=== PATIENT | female | born 1990 | race Caucasian/White ===

== ENCOUNTER 2016-12-11 17:16 | Outpatient (CLI) | payer MEDICAID, OTHER ==
[~2016-12-11] VITALS: Ht 168.9 cm; Wt 103.0 kg
[~2016-12-11 17:16] MED LIST: ACET50TA PO; PRENTAB29 PO
[2016-12-11 17:25] VITALS: BP 113/72
[2016-12-11] MEDS ORDERED: INSUNSD SC ×2 (17:44)
[2016-12-11] MEDS ORDERED: VITA400T13 PO (17:44)
[2016-12-11] MEDS ORDERED: MAGN250T2 PO (17:44)
[2016-12-11] MEDS ORDERED: HUMA100I3 SC ×2 (17:44)
[2016-12-11] MEDS ORDERED: ALBU17IN2 INH (17:44)
[2016-12-11] MEDS ORDERED: CLAR10CA3 PO (17:44)
[2016-12-11] MEDS ORDERED: IRON50TA PO (17:44)
== END 2016-12-11 19:16 ==
LOC: M LDO 17:16
PROVIDERS: ATTEND Obstetrics & Gynecology
DX: O26.893 Other specified pregnancy related conditions, third trimester (principal); R10.9 Unspecified abdominal pain; O09.213 Supervision of pregnancy with history of pre-term labor, third trimester; O24.419 Gestational diabetes mellitus in pregnancy, unspecified control; O99.513 Diseases of the respiratory system complicating pregnancy, third trimester; J44.9 Chronic obstructive pulmonary disease, unspecified; O99.343 Other mental disorders complicating pregnancy, third trimester; F43.10 Post-traumatic stress disorder, unspecified; F60.3 Borderline personality disorder; Z3A.33 33 weeks gestation of pregnancy

== ENCOUNTER 2018-01-17 21:10 | Outpatient (CLI) | payer OTHER | END 2018-01-17 22:25 | disposition home or self-care (01) | LOC: M LDO 21:10 | DX: O47.03 False labor before 37 completed weeks of gestation, third trimester (principal); Z3A.35 35 weeks gestation of pregnancy; Z79.4 Long term (current) use of insulin; Z79.899 Other long term (current) drug therapy; Z88.0 Allergy status to penicillin; Z88.8 Allergy status to other drugs, medicaments and biological substances | CPT/HCPCS: 76815 ==

== ENCOUNTER 2019-03-11 19:14 | Inpatient (IN) | payer OTHER ==
[~2019-03-11] VITALS: Ht 162.6 cm; Wt 102.1 kg
[~2019-03-11 19:14] MED LIST changes: -ACET50TA PO; +ALBU17IN2 INH; +CLAR10CA3 PO; +HUMA100I3 SC; +INSUNSD SC; +IRON50TA PO; +MAGN250T7 PO; +MAPA500T2 PO; +VITA400T13 PO
[2019-03-11 19:34] VITALS: BP 113/63
[2019-03-11] MEDS ORDERED: PROT20TA11 PO (19:41)
[2019-03-11] MEDS ORDERED: VALT500T PO (19:41)
[2019-03-11] MEDS ORDERED: PROZ20CA11 PO (19:44)
[2019-03-11] MEDS ORDERED: METF500T13 PO ×2 (19:44)
[2019-03-11 20:53] VITALS: BP 107/60
[2019-03-11] MEDS ORDERED: metFORMIN (GLUCOPHAGE) 500 MG TAB PO ONE (21:30)
--- NOTE | 2019-03-11 21:32 | HPE ---
DATE OF ADMISSION: 03/11/2019 HISTORY: 28-year-old, 10, para 5 female at 34-0/7 weeks gestation by last menstrual period (LMP) consistent with ultrasound, estimated date of confinement (EDC) 04/22/2019, presents as a transfer from [facility] with rupture of membranes confirmed by Dr. Marina with minimal contractions. The patient has complained of leaking fluid on and off throughout the day and passed a mucus like clot as well. Per reports, the patient had positive pooling but was negative for nitrazine and negative for rupture of membranes testing at [facility]. She was transferred by ambulance due to prematurity. She was given a dose of clindamycin for rupture of membranes as well as a dose of betamethasone for lung maturity. COURSE: The patient initiated care at [facility]. She had an abnormal early glucose tolerance test and was diagnosed with probable pregestational diabetes. She was started on metformin twice a day. During her compliance has been poor with glucose testing. She has microcytic anemia and has been taking iron but again has been poorly compliant. 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 She has no evidence of disease currently. She has a large ventral hernia which is going to require repair after surgery. She supposedly has a valve problem with her heart and an echocardiogram was ordered, we have no record of any cardiology appointments at this time. She has a history of a genital herpes outbreak during the and has been started on Valtrex. She also has a history of mental health problems such as depression and has seen psychiatry. Doctors at [facility] attempted to transfer her down to [place] due to the complexity of her medical problems, however she was noncompliant with keeping her scheduled appointment at [facility]. OBSTETRICAL HISTORY: 1. 2011: 41 weeks, vaginal delivery, 7 pound 2 ounce female infant. 2. 2012: 37-6/7 weeks, vaginal delivery, 7 pound 9 ounce female . 3. 2014: 39 weeks, vaginal delivery, 9 pound 4 ounce female . 4. 2016: 37 weeks, vaginal delivery, 8 pound 7 ounce male infant. 5. February of 2018: 39 weeks vaginal delivery, 7 pound 13 ounce male infant. She has had miscarriages and abortions as well. MEDICAL HISTORY: 1. Diabetes mellitus. 2. Depression. 3. Ventral hernia. SURGICAL HISTORY: 1. Laparotomy with right salpingo-oophorectomy for immature teratoma. She was subsequently treated with chemotherapy and cleared by oncology. SOCIAL HISTORY: The patient lives in [place]. She is a former smoker. Denies drug use. Currently unemployed and on disability. She is . ALLERGIES: PENICILLIN, DOXYCYCLINE, OXYCODONE, IBUPROFEN, FLAGYL, TOPAMAX, SULFA, ASPIRIN, RIZATRIPTAN, LATEX. FAMILY HISTORY: Noncontributory. PHYSICAL EXAMINATION: Blood pressure 134/74, pulse 84, afebrile, no apparent distress. Head and neck exam normal. Lungs clear. Heart: Regular rate and rhythm. Abdomen: Nontender, gravid, enlarged ventral wall hernia present, heart tones category 1. Sterile speculum exam: Negative pooling, negative ferning, negative nitrazine. Cervix is fingertip to 1 cm dilated, long, firm, high. Contractions: None. heart tones: Category 1. Extremities: Nontender. Ultrasound reveals amniotic fluid index (LUIZ) of 12.0, vertex fetus. ASSESSMENT: 28-year-old, 10, para 5 female at 34-0/7 weeks gestation by last menstrual period (LMP) plus ultrasound, estimated date of confinement (EDC) of 04/22/2019 presents with a diagnosis of premature rupture of membranes. However, testing here does not confirm rupture of membranes. Will admit for observation and attempt to confirm rupture of membranes. Will complete course of betamethasone. Will hold off on any further antibiotics until rupture of membranes is confirmed. If rupture of membranes is not confirmed, the patient may be discharged home. She will have to decide where to followup with care moving forward. JADE
[2019-03-11] MEDS ORDERED: PILL CUTTER 1 EACH XX PRN (21:45)
[2019-03-11 21:55] VITALS: BP 118/57
[2019-03-11] MEDS ORDERED: FLUoxetine 20 MG CAP PO SCH (22:00)
[2019-03-11 22:06] LABS: HEMATOCRIT 36.8 % (36.0-47.0); HEMOGLOBIN 11.9 g/dl (12.0-15.5); MEAN CORPUSCULAR HEMOGLOBIN 27.8 pg (27.0-33.0); MEAN CORPUSCULAR HGB CONC 32.3 g/dl (32.0-36.5); PLATELET COUNT, AUTOMATED 271 10^3/uL (150-450); RED BLOOD COUNT 4.28 10^6/uL (4.00-5.40); WHITE BLOOD COUNT 12.2 10^3/uL (4.0-10.0)
[2019-03-11] MEDS: PRENATAL VITAMINS CHEWABLE TABLET PO SCH (22:06)
[2019-03-12] MEDS ORDERED: PANTOPRAZOLE 20 MG TAB PO ONE (06:30)
[2019-03-12] MEDS ORDERED: LORATADINE 10 MG TAB PO ONE (06:30)
[2019-03-12] MEDS ORDERED: valACYclovir HCL 500 MG TAB PO ONE (06:30)
[2019-03-12] MEDS ORDERED: BETAMETHASONE SOLUSPAN 6MG/ML INJ 5ML (J0702) IM ONE (06:30)
[2019-03-12 07:28] VITALS: BP 96/53
[2019-03-12] MEDS ORDERED: ACETAMINOPHEN 500 MG TAB PO ONE (07:45)
[2019-03-12] MEDS ORDERED: metFORMIN (GLUCOPHAGE) 500 MG TAB PO SCH (08:00)
[2019-03-12] MEDS: PRENATAL VITAMINS CHEWABLE TABLET PO SCH (09:10)
--- NOTE | 2019-03-12 09:23 | DSES ---
DATE OF ADMISSION: 03/11/2019 DATE OF DISCHARGE: 03/12/2019 28-year-old 10, para 5, female at 34-0/7 weeks gestation who presents as a transfer from [facility] with rupture of membranes, confirmed by Dr. Rodriguez. She had minimal contractions. She had been leaking on and off throughout the day reportedly. The patient's has been complicated by multiple medical issues including pregestational diabetes, migraines headaches, possible heart valve issues, genital herpes, and mental problems. HOSPITAL COURSE: The patient was transferred by ambulance to [facility] on 03/11/2019 in the early evening hours. It was noted that she did not have any continued leaking of fluid. A thorough exam was performed and rupture of membranes could not be confirmed. An ultrasound at the bedside showed an amniotic fluid index of 12.0. The patient had a reactive NST with no contractions. She received one dose of clindamycin en route from [facility]. She also received a dose of betamethasone for lung maturity. The patient was observed overnight and had no further leaking. It was determined that she in fact did not have rupture of membranes and she was deemed stable for discharge home. ADMISSION DIAGNOSIS: at 34 weeks, possible rupture of membranes. DISCHARGE DIAGNOSIS: 34 weeks, no evidence of rupture of membranes, stable. DISPOSITION: The patient will follow-up at [facility] this week for continued care. She can return here if needed at any point in time.
== END 2019-03-12 11:00 | disposition home or self-care (01) | DRG 566 ==
LOC: M LDI 19:14
PROVIDERS: ADMIT Specialist; ATTEND Specialist
DX: O24.419 Gestational diabetes mellitus in pregnancy, unspecified control (principal); Z3A.34 34 weeks gestation of pregnancy; K43.9 Ventral hernia without obstruction or gangrene; Z88.0 Allergy status to penicillin; Z88.5 Allergy status to narcotic agent; Z88.2 Allergy status to sulfonamides; Z88.6 Allergy status to analgesic agent; Z91.040 Latex allergy status; Z88.8 Allergy status to other drugs, medicaments and biological substances

== ENCOUNTER → 2020-10-21 | Outpatient (REF) | payer OTHER ==
[~2020-10-21] MED LIST changes: +METF500T13 PO; +PROT20TA11 PO; +PROZ20CA11 PO; +VALT500T PO
[2020-10-21 17:58] LABS: APPEARANCE, URINE MANUAL TURBID (CLEAR); BILIRUBIN, URINE MANUAL NEGATIVE (NEGATIVE); BLOOD URINE MANUAL NEGATIVE (NEGATIVE); COLOR, URINE MANUAL DK YELLOW (YELLOW); GLUCOSE, URINE (UA) MANUAL NEGATIVE (NEGATIVE); KETONE, URINE MANUAL 1+ mg/dL (NEGATIVE); LEUKOCYTE ESTERASE, URINE MAN TRACE (NEGATIVE); NITRITE, URINE MANUAL NEGATIVE (NEGATIVE); PH,URINE MAN 5.5 UNITS (5.0 - 7.0); PROTEIN, URINE MANUAL NEGATIVE (NEGATIVE); SPECIFIC GRAVITY,URINE MANUAL 1.025 (1.002-1.035); UROBILINOGEN, URINE MANUAL NORMAL (NORMAL)
[2020-10-21 18:23] LABS: AMORPHOUS SEDIMENT, URINE LARGE AMOUNT (NEGATIVE); BACTERIA, URINE NONE SEEN; MUCUS, URINE SMALL AMOUNT (NEGATIVE); RBC, URINE NONE SEEN /hpf (0-3); SQUAMOUS EPITHELIAL CELL URINE MOD AMOUNT /hpf (SMALL AMT); WBC, URINE 0-1 /hpf (0-3)
[2020-10-21 18:24] LABS: HYALINE CAST, URINE NONE SEEN /lpf (0-1)
== END ==
LOC: M SMT 16:58
PROVIDERS: ATTEND Nurse Practitioner Family
DX: R32 Unspecified urinary incontinence (principal)